=== PATIENT | female | born 1980 | race Caucasian/White ===

== ENCOUNTER 2016-12-31 01:07 | Emergency (ER) | payer MEDICAID, OTHER ==
[~2016-12-31] VITALS: Ht 152.4 cm; Wt 65.5 kg
[2016-12-31 01:17] VITALS: Ht 152.4 cm; Wt 65.5 kg
[2016-12-31] MEDS ORDERED: ONDANSETRON 4 MG INJ IV STA (01:59)
[2016-12-31] MEDS ORDERED: FAMOTIDINE 20 MG INJ IV STA (01:59)
[2016-12-31] MEDS ORDERED: SOD CHLORIDE 0.9% 1,000 ML IV STA (01:59)
[2016-12-31 02:21] LABS: ADD SCAN DIFF NO
[2016-12-31 02:23] LABS: BASOPHILS % 0.1 % (0.0-2.0); EOSINOPHILS # 0.1 10^3/ul (0.0-0.5); EOSINOPHILS % 0.6 % (0.0-7.0); HEMATOCRIT 43.1 % (37.0-47.0); HEMOGLOBIN 14.2 g/dl (12.0-16.0); LYMPHOCYTES # 1.9 10^3/ul (0.8-2.9); MEAN CORPUSCULAR HEMOGLOBIN 23.8 pg (29.0-33.0); MEAN CORPUSCULAR HGB CONC 32.9 g/dl (32.0-37.0); MEAN CORPUSCULAR VOLUME 72.2 fl (82.0-101.0); MEAN PLATELET VOLUME 10.1 fl (7.4-10.4); MONOCYTE # 0.5 10^3/ul (0.3-0.9); MONOCYTES % 4.3 % (0.0-11.0); NEUTROPHIL # 8.3 10^3/ul (1.6-7.5); NEUTROPHILS % 76.6 % (39.0-77.0); PLATELET COUNT 341 10^3/UL (140-415); RED BLOOD COUNT 5.97 10^6/ul (4.20-5.40); RED CELL DISTRIBUTION WIDTH 14.7 % (11.5-14.5); WHITE BLOOD COUNT 10.8 10^3/ul (4.8-10.8)
[2016-12-31 02:40] LABS: ALBUMIN 4.1 g/dl (3.3-4.9)
[2016-12-31 02:41] LABS: POTASSIUM 4.2 mmol/L (3.5-5.1)
[2016-12-31 02:43] LABS: ALBUMIN/GLOBULIN RATIO 1.2; CREATININE 0.61 mg/dl (0.44-1.00); TOTAL PROTEIN 7.5 g/dl (6.1-8.1)
[2016-12-31 02:44] LABS: CALCIUM 9.2 mg/dl (8.4-10.2)
[2016-12-31 02:49] LABS: BILIRUBIN,INDIRECT 0.4 mg/dl (0-1.1); BILIRUBIN,TOTAL 0.4 mg/dl (0.2-1.3)
[2016-12-31] MEDS ORDERED: morphine 4 MG/ML VIAL IV STA (02:54)
[2016-12-31 03:32] LABS: URINE BILIRUBIN (Dip) NEGATIVE (NEGATIVE); URINE BLOOD (Dip) NEGATIVE (NEGATIVE); URINE COLOR YELLOW (YELLOW); URINE GLUCOSE (Dip) NEGATIVE (NEGATIVE); URINE KETONES (Dip) NEGATIVE (NEGATIVE); URINE LEUKOCYTE ESTERASE (Dip) NEGATIVE (NEGATIVE); URINE NITRITE (Dip) NEGATIVE (NEGATIVE); URINE UROBILINOGEN (Dip) 0.2 E.U./dL (0.1-1.0)
[2016-12-31 03:37] LABS: ADD UMIC NO; URINE TOTAL PROTEIN (Dip) NEGATIVE (NEGATIVE)
--- NOTE | 2016-12-31 04:14 | RADRPT ---
PROCEDURE: CT ABDOMEN/PELVIS WITHOUT CONTRAST CLINICAL INDICATION: 36-year-old female with abdominal pain. TECHNIQUE: The study was performed utilizing a GE Skin Scanpeed VCT 64-slice CT scanner. Direct axia l sections were obtained through the abdomen and pelvis without the use of intravenous contrast mate rial. Sagittal and coronal reformations were obtained. One or more of the following dose reduction t echniques were utilized: automated exposure control, adjustment of the mA and/or kV according to pat ient's size or use of iterative reconstruction technique. The images [facility] CTD/vol = 8.4 mGy; Total Exam DLP = 489.4 mGy-cm. COMPARISON: None. FINDINGS: The lung bases are unremarkable. There is no evidence for significant pleural effusion. The liver has a normal size and contour without focal areas of abnormal density. No intrahepatic nor extrahepa tic biliary ductal dilatation is seen. The gallbladder demonstrates no wall thickening nor perichole cystic fluid. No biliary stones are evident. The pancreas is without areas of abnormal attenuation. The spleen is identified and has a normal size without abnormal density. The adrenal glands are unr emarkable. There is a rotational abnormality of the right kidney which appears to be duplicated. Th ere is a punctate nonobstructing left lower pole renal calculus. There is no evidence for obstructi ve uropathy. The urinary bladder is decompressed. There is diffuse thickening of the small bowel wit hout evidence for obstruction. The colon is decompressed. The appendix is visualized and is without abnormal thickening or surrounding inflammatory reaction. There is mild lower abdominal and pelvic free fluid. There is mild diffuse mesenteric infiltration. The aortoiliac vessels are without aneury smal dilatation. The osseous structures are intact. IMPRESSION: 1. Mild diffuse small bowel thickening without obstruction with mild diffuse mesenteric infiltratio n and free fluid within the lower abdomen and pelvis. This may represent an enteritis. Inflammatory bowel disease or ischemic bowel cannot be excluded. Clinical correlation is necessary. 2. No CT evidence for appendicitis. 3. Punctate nonobstructing left lower pole renal calculus. 4. 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 .Gil Mancia MD, MD Date Time Electronically viewed and signed by .Gil Mancia MD, on 12/31/2016 04:14 .M/
--- NOTE | 2016-12-31 05:03 | ERD ---
ER Documentation Chief Complaint Date/Time DATE: 12/31/16 TIME: 05:00 Chief Complaint AP Since 0900. hx of GERD. Not per verbatum HPI This is a 36-year-old female who presents to the emergency room for evaluation of abdominal pain. The patient does state she has a history of gastroesophageal reflux disease. Patient states that she has been feeling nauseous and has had abdominal pain which she localizes to the epigastric region. The patient denies any radiation the pain. She denies any shortness of breath, diaphoresis associated with this. The patient states any palpation aggravates her pain nothing has relieved her pain so far. ROS All systems reviewed and are negative except as per history of present illness. Allergies Allergies: Coded Allergies: No Known Allergy (Unverified , 12/31/16) PMhx/Soc History of Surgery: Yes (CS) Anesthesia Reaction: No Hx Neurological Disorder: No Hx Respiratory Disorders: No Hx Cardiac Disorders: No Hx Psychiatric Problems: No Hx Miscellaneous Medical Probl: Yes (Gastritis) Hx Alcohol Use: No Hx Substance Use: No Hx Tobacco Use: No Smoking Status: Never smoker Physical Exam Vitals Vital Signs Date Time Temp Pulse Resp B/P Pulse Ox O2 Delivery O2 Flow Rate FiO2 12/31/16 01:17 97.2 97 20 122/67 100 Physical Exam INITIAL VITAL SIGNS: Reviewed by me GENERAL: The patient is well developed and appropriate for usual state of health in no apparent distress HEENT: Pupils equal, round, and reactive to light. EOMI. There is no scleral icterus. NECK: C-spine is soft and supple, there is no meningismus. There is no cervical lymphadenopathy. LUNGS: Clear to auscultation bilaterally. There are no rales, wheezes or rhonchi. HEART: Regular rate and rhythm, no murmurs, clicks, rubs or gallops. ABDOMEN: Epigastric tenderness to palpation, negative Edward sign, otherwise soft, non-tender, non-distended. There are bowel sounds in all four quadrants. No rebound or guarding. EXTREMITIES: There is no peripheral cyanosis or edema. No focal swelling or erythema. NEUROLOGICAL: The patient moves all four extremities with 5/5 strength. Cranial nerves II - XII are intact. Normal gait. Alert and oriented SKIN: There is no apparent rash or petechiae. HEME/LYMPHATIC: There is no evidence of excessive bruising or lymphedema. PSYCHIATRIC: The patient does not appear anxious or depressed. Result Diagram: 12/31/16 0213 12/31/16 0213 Results 24 hrs Laboratory Tests Test 12/31/16 02:13 12/31/16 03:05 Alanine Aminotransferase (ALT/SGPT) 36IU/L Albumin 4.1g/dl Albumin/Globulin Ratio 1.20 Alkaline Phosphatase 85IU/L Anion Gap 19 Aspartate Amino Transf (AST/SGOT) 21IU/L Basophils # 0.010^3/ul Basophils % 0.1% Blood Urea Nitrogen 9mg/dl Calcium Level 9.2mg/dl Carbon Dioxide Level 25mmol/L Chloride Level 103mmol/L Creatinine 0.61mg/dl Direct Bilirubin 0.00mg/dl Eosinophils # 0.110^3/ul Eosinophils % 0.6% Globulin 3.40g/dl Glucose Level 123mg/dl Hematocrit 43.1% Hemoglobin 14.2g/dl Indirect Bilirubin 0.4mg/dl Lipase 58U/L Lymphocytes # 1.910^3/ul Lymphocytes % 18.0% Mean Corpuscular Hemoglobin 23.8pg Mean Corpuscular Hemoglobin Concent 32.9g/dl Mean Corpuscular Volume 72.2fl Mean Platelet Volume 10.1fl Monocytes # 0.510^3/ul Monocytes % 4.3% Neutrophils # 8.310^3/ul Neutrophils % 76.6% Nucleated Red Blood Cells # 0.010^3/ul Nucleated Red Blood Cells % 0.0/100WBC Platelet Count 87450^3/UL Potassium Level 4.2mmol/L Red Blood Count 5.9710^6/ul Red Cell Distribution Width 14.7% Sodium Level 143mmol/L Total Bilirubin 0.4mg/dl Total Protein 7.5g/dl White Blood Count 10.810^3/ul Urine Bilirubin NEGATIVE Urine Clarity CLEAR Urine Color YELLOW Urine Glucose NEGATIVE% Urine Hemoglobin NEGATIVE Urine Ketones NEGATIVE Urine Leukocyte Esterase NEGATIVE Urine Nitrite NEGATIVE Urine Specific Helton >=1.030 Urine Total Protein NEGATIVE Urine Urobilinogen 0.2 E.U./dL Urine pH 5.5 Current Medications Medications (Trade) Dose Ordered Sig/Richard Route PRN Reason Start Time Stop Time Status Last Admin Dose Admin Sodium Chloride (NS) 1,000 ml @ 1,000 mls/hr Q1H STAT IV 12/31/16 01:59 3/18/17 02:58 DC 12/31/16 02:09 Ondansetron HCl (Zofran Inj) 4 mg ONCE STAT IV 12/31/16 01:59 12/31/16 02:00 DC 12/31/16 02:09 Famotidine (Pepcid Iv) 20 mg ONCE STAT IV 12/31/16 01:59 12/31/16 02:00 DC 12/31/16 02:09 Morphine Sulfate (morphine) 4 mg ONCE STAT IV 12/31/16 02:54 12/31/16 02:55 DC 12/31/16 03:09 Procedures/MDM CT abdomen pelvis without: 1. Mild diffuse small bowel thickening without obstruction with mild diffuse mesenteric infiltration and free fluid within the lower abdomen and pelvis. This may represent an enteritis. Inflammatory bowel disease or ischemic bowel cannot be excluded. Clinical correlation is necessary. 2. No CT evidence for appendicitis. 3. Punctate nonobstructing left lower pole renal calculus. 4. 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 This 36-year-old female presents to the emergency room for evaluation of abdominal pain. This patient does have a history of gastroesophageal reflux disease. The patient did have epigastric pain on my examination. She was given Zofran and Pepcid with mild relief of her pain. The patient was then given morphine. The patient had a CAT scan which does show small bowel thickening with no obvious obstruction. My suspicion for ischemic bowel is low at this time as this patient's pain is completely controlled with morphine. She is not tachycardic, lactic acid is only 1.5. She is in no acute distress. The patient does have a history of GERD and given her symptoms I do feel that she has a flareup of her gastritis. The patient will be discharged home with a prescription for Zantac at this time. I have discussed her plan of care with the patient and advised to return immediately to the ER if she develops any worsening pain and she verbalized understanding. Departure Diagnosis: Primary Impression: Acute gastritis Additional Impressions: Abdominal pain Nausea Condition: Stable JOE SOOD DO Dec 31, 2016 05:03
[2016-12-31] MEDS ORDERED: RANI150T9 PO (05:04)
[2016-12-31 05:14] VITALS: BP 102/66; PULSE 68; RESP 13; TEMP 98.6
== END 2016-12-31 05:14 | disposition home or self-care (01) ==
LOC: E/R 01:07
DX: K29.00 Acute gastritis without bleeding (principal); R11.0 Nausea
CPT/HCPCS: 36415; 74176; 80053; 81003; 83605; 83690; 85025; 96374; 96375; J2270; J2405; J7030; Z7502; Z7610

== ENCOUNTER 2017-02-12 04:51 | Emergency (ER) | payer MEDICAID ==
[~2017-02-12] VITALS: Ht 160 cm; Wt 67.0 kg
[~2017-02-12 04:51] MED LIST: RANI150T9 PO
[2017-02-12 04:56] VITALS: Ht 160 cm; Wt 67.0 kg
[2017-02-12] MEDS ORDERED: BELLADONNA/PHENOBARBITAL TAB PO STA (05:10)
[2017-02-12] MEDS ORDERED: ONDANSETRON 4 MG INJ IV STA (05:10)
[2017-02-12] MEDS ORDERED: FAMOTIDINE 20 MG INJ IV STA (05:10)
[2017-02-12] MEDS ORDERED: LIDOCAINE/MYLANTA 40 ML BTL PO STA (05:10)
[2017-02-12 05:22] LABS: URINE BLOOD (Dip) POC 2+ (NEGATIVE)
[2017-02-12] MEDS ORDERED: FAMO-18 PO (05:29)
[2017-02-12] MEDS ORDERED: ONDA4TAB8 PO (05:29)
--- NOTE | 2017-02-12 05:33 | ERD ---
ER Documentation Chief Complaint Date/Time DATE: 02/12/17 TIME: 05:31 Chief Complaint epigastric pain since 1 hour ago HPI This is a 36-year-old female presents to the ER with epigastric pain for the last hour. Patient has a known history of GERD. Patient is taking omeprazole and ranitidine at home however this has not helped her. She does have vomiting. Vomiting is nonbilious nonbloody. Epigastric pain is described as burning in quality. Pain is nonradiating. She denies any fevers or chills. She does not have any diarrhea. She denies any constipation. She denies any urinary frequency or dysuria. Patient denies any chest pain or shortness of breath. ROS 12 point review of systems was done, all negative except per HPI. Medications Home Meds Active Scripts Famotidine* (Pepcid*) 20 Mg Tablet, 20 MG PO BID for 7 Days, TAB Prov:MAREK LUCAS C 02/12/17 Ondansetron Hcl* (Zofran*) 4 Mg Tablet, 4 MG PO Q6H for NAUSEA AND/OR VOMITING, #30 TAB Prov:SHAYYMENDOZAMAREK C 02/12/17 Ranitidine Hcl* (Zantac*) 150 Mg Tablet, 150 MG PO BID, #60 TAB Prov:JOE SOOD DO 12/31/16 Allergies Allergies: Coded Allergies: No Known Allergy (Unverified , 12/31/16) PMhx/Soc History of Surgery: Yes (CS) Anesthesia Reaction: No Hx Neurological Disorder: No Hx Respiratory Disorders: No Hx Cardiac Disorders: No Hx Psychiatric Problems: No Hx Miscellaneous Medical Probl: Yes (Gastritis) Hx Alcohol Use: No Hx Substance Use: No Hx Tobacco Use: No Smoking Status: Never smoker Physical Exam Vitals Vital Signs Date Time Temp Pulse Resp B/P Pulse Ox O2 Delivery O2 Flow Rate FiO2 02/12/17 04:56 97.8 78 20 134/78 98 Physical Exam GENERAL: The patient is well developed and appropriate for usual state of health , in no apparent distress. HEENT: Atraumatic. CHEST: Clear to auscultation bilaterally. There are no rales, wheezes or rhonchi. HEART: Regular rate and rhythm. No murmurs, clicks, rubs or gallops. ABDOMEN: Soft, nontender and nondistended. Good bowel sounds. No rebound or guarding. No gross peritonitis. No gross organomegaly or masses. No Edward sign or McBurney point tenderness. BACK: No midline or flank tenderness. NEURO: Alert and oriented. SKIN:The skin is warm and dry. Results 24 hrs Laboratory Tests Test 02/12/17 05:23 Bedside Urine pH (LAB) 6.0 Bedside Urine Protein (LAB) Negative Bedside Urine Glucose (UA) Negative Bedside Urine Ketones (LAB) Negative Bedside Urine Blood 2+ Bedside Urine Nitrite (LAB) Negative Bedside Urine Leukocyte Esterase (L Negative Current Medications Medications (Trade) Dose Ordered Sig/Richard Route PRN Reason Start Time Stop Time Status Last Admin Dose Admin Ondansetron HCl (Zofran Inj) 4 mg ONCE STAT IV 02/12/17 05:10 02/12/17 05:12 DC Famotidine (Pepcid Iv) 20 mg ONCE STAT IV 02/12/17 05:10 02/12/17 05:12 DC Miscellaneous Medication (Gi Cocktail (2)) 40 ml ONCE STAT PO 02/12/17 05:10 02/12/17 05:12 DC Belladonna/ Phenobarbital () 2 tab ONCE STAT PO 02/12/17 05:10 02/12/17 05:12 DC Procedures/MDM Differential Diagnosis: GERD, gastritis, peptic ulcer disease, pancreatitis, cholecystitis, choledocholithiasis, biliary colic, cholangitis, Qaei-Aeyq-Tosabo , ACS/AR, Pnuemonia . This is likely GERD. Patient appears to have severe and constant symptoms. I advised patient to urgently follow up with a product development chemist for endoscopy and H. pylori testing. I did get an ultrasound to rule out gallbladder disease. I am still awaiting these results. If results are normal patient will be sent home with Zofran with famotidine. I shared my medical decision making with the patient she understands and agrees with plan. Departure Diagnosis: Primary Impression: Epigastric pain Condition: Stable Patient Instructions: Epigastric Pain (Uncertain Cause) Additional Instructions: Specialist:Usted tiene suzie condicin mdica que requiere que vicki a un especialista dentro de los prximos 1-2 guadalupe.POR FAVOR,CON [place]AMP[place]LL SEGUIMIENTO DE PRIMARIA PHSICIAN refferal. SI USTED NO TIENE UN MDICO GENERAL Y / O USTED NO PUEDE PAGAR dez a un mdico,los siguientes barry RECURSOS sido suministrado a usted. ES CAMP[place]LL RESPONSABILIDAD PARA SER VISTOS POR EL ESPECIALISTA: NECESITA DEZ UN GASTROENTEROLOGO PARA SUZIE ENDOSCOPIA PIDA EXAMEN DE H.PYLORI MAREK LUCAS Feb 12, 2017 05:33
[2017-02-12 05:53] LABS: ADD SCAN DIFF NO
[2017-02-12 05:59] LABS: BASOPHILS % 0.1 % (0.0-2.0); EOSINOPHILS # 0.1 10^3/ul (0.0-0.5); EOSINOPHILS % 1.5 % (0.0-7.0); HEMATOCRIT 40.6 % (37.0-47.0); HEMOGLOBIN 12.9 g/dl (12.0-16.0); LYMPHOCYTES # 1.7 10^3/ul (0.8-2.9); LYMPHOCYTES % 21.7 % (15.0-51.0); MEAN CORPUSCULAR HGB CONC 31.8 g/dl (32.0-37.0); MEAN CORPUSCULAR VOLUME 72.2 fl (82.0-101.0); MEAN PLATELET VOLUME 10.2 fl (7.4-10.4); MONOCYTE # 0.3 10^3/ul (0.3-0.9); MONOCYTES % 4.2 % (0.0-11.0); NEUTROPHIL # 5.7 10^3/ul (1.6-7.5); NEUTROPHILS % 72.1 % (39.0-77.0); PLATELET COUNT 366 10^3/UL (140-415); RED BLOOD COUNT 5.62 10^6/ul (4.20-5.40); RED CELL DISTRIBUTION WIDTH 15.4 % (11.5-14.5); WHITE BLOOD COUNT 7.8 10^3/ul (4.8-10.8)
[2017-02-12 06:12] LABS: ADD UMIC YES; ALBUMIN 4.4 g/dl (3.3-4.9); URINE BILIRUBIN (Dip) NEGATIVE (NEGATIVE); URINE BLOOD (Dip) 3+ (NEGATIVE); URINE COLOR LT. YELLOW (YELLOW); URINE GLUCOSE (Dip) NEGATIVE (NEGATIVE); URINE KETONES (Dip) NEGATIVE (NEGATIVE); URINE LEUKOCYTE ESTERASE (Dip) NEGATIVE (NEGATIVE); URINE NITRITE (Dip) NEGATIVE (NEGATIVE); URINE TOTAL PROTEIN (Dip) NEGATIVE (NEGATIVE); URINE UROBILINOGEN (Dip) 0.2 E.U./dL (0.1-1.0)
[2017-02-12 06:13] LABS: POTASSIUM 4.1 mmol/L (3.5-5.1)
[2017-02-12 06:15] LABS: ALBUMIN/GLOBULIN RATIO 1.41; BILIRUBIN,INDIRECT 0.5 mg/dl (0-1.1); BILIRUBIN,TOTAL 0.5 mg/dl (0.2-1.3); CREATININE 0.58 mg/dl (0.44-1.00); TOTAL PROTEIN 7.5 g/dl (6.1-8.1)
[2017-02-12 06:16] LABS: CALCIUM 9.2 mg/dl (8.4-10.2)
--- NOTE | 2017-02-12 06:16 | RADRPT ---
PROCEDURE: Abdominal ultrasound, limited. CLINICAL INDICATION: Abdominal pain. TECHNIQUE: Multiple real-time images were acquired of the patient's right upper abdomen utilizing a high resolution transducer. COMPARISON: None FINDINGS: The liver demonstrates increased echogenicity and normal size measuring 15.1 cm. There is no focal mass or intrahepatic biliary ductal dilatation. The portal vein is patent. The gallbladder is not distended. No gallstones are identified. There is no pericholecystic fluid or gallbladder wall thi ckening. The common bile duct measures 4.0 mm in maximal dimension. The pancreas is obscured by ov erlying bowel gas. No free fluid is identified. The right kidney is normal size and echogenicity measuring 8.9 cm. There is no focal renal mass or echogenic calculus identified. There is no obstructive uropathy. IMPRESSION: Fatty infiltration of the liver. Pancreas obscured by overlying bowel gas. .Fredrick Gabriel MD, Date Time Electronically viewed and signed by .Fredrick Gabriel MD, MD on 02/12/2017 06:16 .T/
[2017-02-12 06:33] LABS: BACTERIA,URINE RARE; SQUAMOUS EPITHELIAL CELL,UR FEW
[2017-02-12 07:17] VITALS: RESP 18
== END 2017-02-12 07:18 | disposition home or self-care (01) ==
LOC: FTE 04:51
DX: R10.13 Epigastric pain (principal); R11.10 Vomiting, unspecified
CPT/HCPCS: 36415; 76705; 80053; 81001; 83690; 85025; 96374; 96375; J2405; Z7502; Z7610; 81003

== ENCOUNTER 2017-04-03 08:20 | Emergency (ER) | payer MEDICAID, OTHER ==
[~2017-04-03] VITALS: Ht 162.6 cm; Wt 68.5 kg
[~2017-04-03 08:20] MED LIST changes: +FAMO-18 PO; +ONDA4TAB8 PO
[2017-04-03 08:32] VITALS: Ht 162.6 cm; Wt 68.5 kg
[2017-04-03] MEDS ORDERED: ONDANSETRON (ODT) 4 MG TAB ODT STA (09:48)
[2017-04-03] MEDS ORDERED: PANTOPRAZOLE (EC) 40 MG TAB PO ONE (10:00)
[2017-04-03] MEDS ORDERED: LIDOCAINE/MYLANTA 40 ML BTL PO ONE (10:00)
[2017-04-03] MEDS ORDERED: morphine 4 MG/ML VIAL IV STA (10:55)
[2017-04-03] MEDS ORDERED: FAMOTIDINE 20 MG INJ IV STA (10:55)
[2017-04-03] MEDS ORDERED: SOD CHLORIDE 0.9% 1,000 ML IV STA (10:55)
[2017-04-03 11:11] LABS: ADD SCAN DIFF NO
[2017-04-03 11:18] LABS: BASOPHILS % 0.2 % (0.0-2.0); EOSINOPHILS # 0.1 10^3/ul (0.0-0.5); EOSINOPHILS % 0.6 % (0.0-7.0); HEMATOCRIT 43.1 % (37.0-47.0); HEMOGLOBIN 13.7 g/dl (12.0-16.0); LYMPHOCYTES # 2.2 10^3/ul (0.8-2.9); LYMPHOCYTES % 19.9 % (15.0-51.0); MEAN CORPUSCULAR HEMOGLOBIN 23.1 pg (29.0-33.0); MEAN CORPUSCULAR HGB CONC 31.8 g/dl (32.0-37.0); MEAN CORPUSCULAR VOLUME 72.7 fl (82.0-101.0); MEAN PLATELET VOLUME 9.4 fl (7.4-10.4); MONOCYTE # 0.5 10^3/ul (0.3-0.9); MONOCYTES % 4.4 % (0.0-11.0); NEUTROPHIL # 8.2 10^3/ul (1.6-7.5); NEUTROPHILS % 74.6 % (39.0-77.0); PLATELET COUNT 313 10^3/UL (140-415); RED BLOOD COUNT 5.93 10^6/ul (4.20-5.40); RED CELL DISTRIBUTION WIDTH 15.5 % (11.5-14.5); WHITE BLOOD COUNT 10.9 10^3/ul (4.8-10.8)
[2017-04-03 11:45] LABS: ALBUMIN 4.9 g/dl (3.3-4.9); ALBUMIN/GLOBULIN RATIO 1.53; BILIRUBIN,INDIRECT 0.4 mg/dl (0-1.1); BILIRUBIN,TOTAL 0.4 mg/dl (0.2-1.3); CALCIUM 9.5 mg/dl (8.4-10.2); CREATININE 0.58 mg/dl (0.44-1.00); POTASSIUM 4.3 mmol/L (3.5-5.1); TOTAL PROTEIN 8.1 g/dl (6.1-8.1)
[2017-04-03] MEDS ORDERED: FAMO-18 PO (12:02)
[2017-04-03] MEDS ORDERED: ACET500C5 PO (12:02)
[2017-04-03 12:25] VITALS: BP 118/70; PULSE 68; RESP 20; TEMP 98.2
--- NOTE | 2017-04-03 16:04 | ERD ---
ER Documentation Chief Complaint Date/Time DATE: 04/03/17 TIME: 15:57 Chief Complaint MIDDLE ABD PAIN X2 DAYS WITH N/V HPI 36-year-old female patient with no significant past medical history presents to the ED complaining of epigastric pain that started last night. Reports that this is the same epigastric pain and has followed up with the [facility] and tested a stool culture which was positive for H. Pylori. States that she is taking amoxicillin, metronidazole and omeprazole. Reports that her last menses was sometime 10 days ago. Reports that she has not followed up with a specialist to see a central office repairer. Denies any chest pain, shortness of breath, fever, chills, cough, dyspnea on exertion, orthopnea , vomiting, diarrhea. ROS All systems reviewed and are negative except as per history of present illness. Medications Home Meds Active Scripts Famotidine* (Pepcid*) 20 Mg Tablet, 20 MG PO BID for 4 Days, TAB Prov:KATHRYN PARRISH PA-C 04/03/17 Acetaminophen* (Tylophen*) 500 Mg Capsule, 1 CAP PO Q6H Y for PAIN AND OR ELEVATED TEMP, #20 CAP Prov:KATHRYN PARRISH PA-C 04/03/17 Famotidine* (Pepcid*) 20 Mg Tablet, 20 MG PO BID for 7 Days, TAB Prov:MAREK LUCAS 02/12/17 Ondansetron Hcl* (Zofran*) 4 Mg Tablet, 4 MG PO Q6H for NAUSEA AND/OR VOMITING, #30 TAB Prov:MAREK LUCAS 02/12/17 Ranitidine Hcl* (Zantac*) 150 Mg Tablet, 150 MG PO BID, #60 TAB Prov:JOE SOOD DO 12/31/16 Allergies Allergies: Coded Allergies: No Known Allergy (Unverified , 12/31/16) PMhx/Soc Medical and Surgical Hx: pt denies Medical Hx, pt denies Surgical Hx History of Surgery: Yes (CS) Anesthesia Reaction: No Hx Neurological Disorder: No Hx Respiratory Disorders: No Hx Cardiac Disorders: No Hx Psychiatric Problems: No Hx Miscellaneous Medical Probl: Yes (Gastritis) Hx Alcohol Use: No Hx Substance Use: No Hx Tobacco Use: No Smoking Status: Never smoker Physical Exam Vitals Vital Signs Date Time Temp Pulse Resp B/P Pulse Ox O2 Delivery O2 Flow Rate FiO2 04/03/17 12:25 98.2 68 20 118/70 98 Room Air 04/03/17 08:32 98.2 82 16 113/73 98 Physical Exam Const: [id number], well-nourished. In no acute distress. Head: Atraumatic, normocephalic Eyes: Normal Conjunctiva without injection. No purulent discharge. ENT: Normal external ear, nose. Moist oropharynx without tonsillar exudates. Non -erythematous pharynx. Uvula midline. No drooling. No trismus. Neck: No cervical midline tenderness. Full range of motion. No meningismus. No cervical lymphadenopathy. No JVD. Resp: Clear to auscultation bilaterally. No wheezing, rhonchi, rales, or crackles. No accessory muscle use. No retractions. Cardio: Regular rate and rhythm. No murmurs, rubs or gallops. Abd: Soft, epigastric tenderness, non distended. Normal bowel sounds. No palpable masses. No rebound tenderness. No guarding. Negative McBurney's point. Negative psoas sign. Negative obturator sign. Skin: No petechiae or rashes Back: No midline tenderness. No CVA tenderness. Ext: No cyanosis, or edema. Neur: Awake and alert. Normal gait. Normal coordination. Psych: Normal Mood and Affect Results 24 hrs Laboratory Tests Test 04/03/17 11:00 White Blood Count 10.910^3/ul Red Blood Count 5.9310^6/ul Hemoglobin 13.7g/dl Hematocrit 43.1% Mean Corpuscular Volume 72.7fl Mean Corpuscular Hemoglobin 23.1pg Mean Corpuscular Hemoglobin Concent 31.8g/dl Red Cell Distribution Width 15.5% Platelet Count 54175^3/UL Mean Platelet Volume 9.4fl Neutrophils % 74.6% Lymphocytes % 19.9% Monocytes % 4.4% Eosinophils % 0.6% Basophils % 0.2% Nucleated Red Blood Cells % 0.0/100WBC Neutrophils # 8.210^3/ul Lymphocytes # 2.210^3/ul Monocytes # 0.510^3/ul Eosinophils # 0.110^3/ul Basophils # 0.010^3/ul Nucleated Red Blood Cells # 0.010^3/ul Sodium Level 142mmol/L Potassium Level 4.3mmol/L Chloride Level 103mmol/L Carbon Dioxide Level 25mmol/L Anion Gap 18 Blood Urea Nitrogen 9mg/dl Creatinine 0.58mg/dl Glucose Level 104mg/dl Calcium Level 9.5mg/dl Total Bilirubin 0.4mg/dl Direct Bilirubin 0.00mg/dl Indirect Bilirubin 0.4mg/dl Aspartate Amino Transf (AST/SGOT) 27IU/L Alanine Aminotransferase (ALT/SGPT) 54IU/L Alkaline Phosphatase 66IU/L Total Protein 8.1g/dl Albumin 4.9g/dl Globulin 3.20g/dl Albumin/Globulin Ratio 1.53 Lipase 64U/L Current Medications Medications (Trade) Dose Ordered Sig/Richard Route PRN Reason Start Time Stop Time Status Last Admin Dose Admin Miscellaneous Medication (Gi Cocktail (2)) 40 ml ONCE ONCE PO 04/03/17 10:00 04/03/17 10:01 DC 04/03/17 10:08 Pantoprazole (Protonix Tab) 40 mg ONCE ONCE PO 04/03/17 10:00 04/03/17 10:01 DC 04/03/17 10:08 Ondansetron HCl 4 mg 4 mg ONCE STAT ODT 04/03/17 09:48 04/03/17 09:49 DC 04/03/17 10:08 Sodium Chloride (NS) 1,000 ml @ 1,000 mls/hr Q1H STAT IV 04/03/17 10:55 04/03/17 11:54 DC 04/03/17 11:09 Morphine Sulfate (morphine) 4 mg ONCE STAT IV 04/03/17 10:55 04/03/17 10:57 DC 04/03/17 11:08 Famotidine (Pepcid Iv) 20 mg ONCE STAT IV 04/03/17 10:55 04/03/17 10:57 DC 04/03/17 11:08 Procedures/MDM 36 year female with no significant past medical history presents to the ED complaining of epigastric pain that started 2 days ago. Reports that she has some slight nausea and vomiting. Patient is afebrile and nontoxic-appearing. Patient has normal vital signs. Patient was given Zofran, GI cocktail, Tylenol with no improvement of her symptoms. Patient states that she still is in pain. Therefore blood work was obtained. Patient was further worked up with CBC, CMP, lipase, UA, urine . CBC: Leukocytosis 10.8. No e/o of systemic infection. No e/o anemia. CMP: No e/o severe acidosis, alkalosis, renal failure, diabetic ketoacidosis, liver disease Lipase within normal limits. Urine: No leukocyte esterase, no nitrites, no hematuria. Urine : Negative Patient likely has GERD vs. gastritis vs. PUD. A differential diagnosis considered includes but is not limited to cholecystitis, choledocholithiasis, cholangitis, pancreatitis, appendicitis, bowel obstruction, ileus, volvulus, nephrolithiasis, pyelonephritis, hepatitis, perforated viscus, diverticulitis, abdominal hernia, acute abdomen, mesenteric ischemia or other emergent conditions. Discharge medications: Tylenol Follow up with primary care physician in 1-2 days for referral to central office repairer for an endoscopy. Instructed patient to return to the ED sooner for any worsening symptoms. Patient's questions were answered. Patient understood and agreed with discharge plan. Patient discharged stable. Departure Diagnosis: Primary Impression: Epigastric pain Condition: Stable Patient Instructions: Gerd (Adult), Gastritis Vs. Ulcer Referrals: [facility] YOU HAVE RECEIVED A MEDICAL SCREENING EXAM AND THE RESULTS INDICATE THAT YOU DO NOT HAVE A CONDITION THAT REQUIRES URGENT TREATMENT IN THE EMERGENCY DEPARTMENT. FURTHER EVALUATION AND TREATMENT OF YOUR CONDITION CAN WAIT UNTIL YOU ARE SEEN IN YOUR DOCTORS OFFICE WITHIN THE NEXT 1-2 DAYS. IT IS YOUR RESPONSIBILITY TO MAKE AN APPOINTMENT FOR FOLOW-UP CARE. IF YOU HAVE A PRIMARY DOCTOR --you should call your primary doctor and schedule an appointment IF YOU DO NOT HAVE A PRIMARY DOCTOR YOU CAN CALL OUR PHYSICIAN REFERRAL HOTLINE AT IF YOU CAN NOT AFFORD TO SEE A PHYSICIAN YOU CAN CHOSE FROM THE FOLLOWING [facility] [address] [facility] [address] [facility] [address] [facility] [facility] [address] [facility]. [facility] [address] [facility]. [facility]. [address] [facility]. [facility] YOU HAVE RECEIVED A MEDICAL SCREENING EXAM AND THE RESULTS INDICATE THAT YOU DO NOT HAVE A CONDITION THAT REQUIRES URGENT TREATMENT IN THE EMERGENCY DEPARTMENT. FURTHER EVALUATION AND TREATMENT OF YOUR CONDITION CAN WAIT UNTIL YOU ARE SEEN IN YOUR DOCTORS OFFICE WITHIN THE NEXT 1-2 DAYS. IT IS YOUR RESPONSIBILITY TO MAKE AN APPOINTMENT FOR FOLOW-UP CARE. IF YOU HAVE A PRIMARY DOCTOR --you should call your primary doctor and schedule and appointment IF YOU DO NOT HAVE A PRIMARY DOCTOR YOU CAN CALL OUR PHYSICIAN REFERRAL HOTLINE AT . IF YOU CAN NOT AFFORD TO SEE A PHYSICIAN YOU CAN CHOSE FROM THE FOLLOWING [facility] INSTITUTIONS: [facility] [address] [place] [address] [facility] [address] [place] [place] [id number] [place] [address] [address] [place] [address] [facility] URGENT CARE/SPECIALTIES Additional Instructions: Visite a zurita kenny lawson para un EXAMEN para un referido a un gastroenterlogo para suzie endoscopia. Regrese a estas instalaciones si no se mejora nyasia esper bamos o nyasia le dijimos. KATHRYN PARRISH PA-C Apr 03, 2017 16:04 bamos o nyasia le dijimos. KATHRYN PARRISH PA-C Apr 03, 2017 16:04
== END 2017-04-03 12:25 | disposition home or self-care (01) ==
LOC: FTE 08:20
DX: R10.13 Epigastric pain (principal); R11.2 Nausea with vomiting, unspecified
CPT/HCPCS: 80053; 83690; 85025; J2270; J7030; Z7610; 36415; 96374; 96375

== ENCOUNTER 2017-07-05 11:29 | Day surgery (SDC) | payer OTHER ==
[~2017-07-05] VITALS: Ht 160 cm; Wt 67.4 kg
[~2017-07-05 11:29] MED LIST changes: +ACET500C5 PO; -FAMO-18 PO; +FAMO-96 PO
[2017-07-05 12:10] VITALS: Ht 160 cm; Wt 67.4 kg
[2017-07-05] MEDS ORDERED: ALLERGY MEDICATION (12:15)
[2017-07-05 13:27] VITALS: BP 122/60; PULSE 83; RESP 18
[2017-07-05] MEDS ORDERED: FENTAnyl 50 MCG/ML VIAL ONE (14:13)
[2017-07-05] MEDS ORDERED: PROPOFOL 20 ML ONE (14:13)
--- NOTE | 2017-07-05 14:38 | OPPN ---
Date/Time of Note Date/Time of Note DATE: 07/05/17 TIME: 14:34 Proc Note GI Procedure Date 07/05/17 Pre-procedure Diagnosis * Occult blood positive stool Post-procedure Diagnosis Assessment: * Normal colonic mucosa to cecum * Small internal hemorrhoids Plan: * Advance diet as tolerated * Colonoscopy at age 48 Procedure Performed: Colonoscopy Surgeon FLORESITA BOOTH MD Autocad none Anesthesia Type: MAC Anesthesiologist: DELMI JONES MD Tourniquet Time none EBL none Transfusion required none Grafts/Implants none Tubes/Drains none Complication(s) none Pt Condition post procedure: stable Disposition: home Indications: other (OB positive stool) Procedure Description After informed consent, with the patient/relatives understanding the procedure, its indications and potential risks and complications, including but not limited to: Allergic reaction, bleeding, perforation, infection, and after all pertinent questions were answered to the patient's satisfaction, the patient/ relatives signed the witnessed informed consent. Following this, premedication was administered slowly IV push under careful cardiovascular and respiratory monitoring with pulse OXIMETRY, automatic blood pressure, and scouring train operator. Once the sedative effect was achieved, the patient was placed in the left lateral decubitus position, digital rectal examination was performed. The colonoscope was then introduced and advanced under visual control throughout all segments of the colon including: the rectum, sigmoid, descending colon, splenic flexure, transverse colon, hepatic flexure, ascending colon and finally reaching the cecum which was clearly identified by transillumination, finger indentation and the ileocecal valve. Careful examination of the mucosa of the lower gastrointestinal tract both on insertion as well as withdrawal of the instrument disclosed the following findings: PREPARATION QUALITY: [Adequate], RECTAL EXAM: The anorectal area was visualized examined and digital rectal examination performed with the following findings: No evidence of perirectal disease, no masses. COLONIC MUCOSA: The mucosa of all segments of the colon was carefully examined and showed the following findings: There are small internal hemorrhoids. Otherwise the examined mucosa appears within normal limits. There is no evidence of inflammatory changes, diverticular formation, polyps or other neoplasms, vascular malformation, or any other abnormality. The instrument was then withdrawn, the patient tolerated the procedure well and was transferred out of the Endoscopy Suite awake and in good condition to continue recovery under observation. Copies To: CC: FLORESITA BOOTH MD, MORDO MD Jul 05, 2017 14:38
--- NOTE | 2017-07-05 14:42 | OPPN ---
Date/Time of Note Date/Time of Note DATE: 07/05/17 TIME: 14:38 Proc Note GI Procedure Date 07/05/17 Pre-procedure Diagnosis * Dyspepsia/reflux symptoms Post-procedure Diagnosis Assessment: * Rule out eosinophilic esophagitis. Biopsies obtained * Moderate gastritis. Rule out H. pylori infection. Biopsies obtained * Otherwise normal EGD Plan: * PPI therapy * Review pathology * Follow-up as necessary Procedure Performed: Endoscopy Surgeon see signature line Deicer Repairer Pneumatic none Anesthesia Type: MAC Anesthesiologist: EDLMI JONES MD Tourniquet Time none EBL none Transfusion required none Grafts/Implants none Tubes/Drains none Complication(s) none Pt Condition post procedure: stable Disposition: home Procedure Description After informed consent, with the patient/relatives understanding the procedure, its indications, potential risks and complications, including but not limited to : allergic reaction, bleeding, perforation or infection, and after all pertinent questions were answered to the patients satisfaction, the patient/ relatives signed witnessed informed consent. Following this, premedication was administered slowly IV push under careful cardiovascular and respiratory monitoring with pulse oximetry, automatic blood pressure, and media monitor. Once the sedative effect was achieved the patient was place in the left lateral decubitus, the panendoscope was introduced and advanced under visual control. Careful examination of the upper gastrointestinal tract, both on insertion as well as withdrawal of the instrument disclosing the following findings: ESOPHAGUS: the mucosa of the entire esophagus was carefully examined and showed the following findings: There is multi-ring appearance of the body of the esophagus. Biopsies were obtained to rule out eosinophilic esophagitis. Otherwise the mucosa appears within normal limits. There is no evidence of esophagitis, varices, neoplasm, or stricture. No Hiatal Hernia identified. STOMACH: Upon entrance to the stomach air was insufflated, the gastric boyle distended normally. The mucosa of the fundus, body and antrum of the stomach was carefully examined both head-on and on retroflexion, and showed the following findings: There is moderate erythema and edema of the mucosa of the body and antrum. Biopsies were obtained to rule out H. pylori infection. Otherwise the mucosa appears within normal limits with no abnormalities. There is no evidence of ulcers or neoplasm. PYLORUS: The pylorus was carefully examined and showed the following findings: the pylorus appears patent and within normal limits, with no evidence of gastric outlet obstruction. DUODENUM: The duodenal mucosa was carefully examined in the duodenal bulb as well as the second portion of the duodenum and showed the following findings: the mucosa appears unremarkable with no evidence of duodenitis, ulcer or neoplasm. Copies To: CC: FLORESITA BOOTH MD, MORDO MD Jul 05, 2017 14:42
[2017-07-05 15:05] VITALS: BP 110/65; PULSE 74; RESP 14
== END 2017-07-05 16:13 | disposition home or self-care (01) ==
LOC: GIL 11:29
PROVIDERS: ATTEND Internal Medicine Gastroenterology
DX: K92.1 Melena (principal); K64.8 Other hemorrhoids; K29.70 Gastritis, unspecified, without bleeding
CPT/HCPCS: 43239; 45378; 84703; 88305; 88312; J3010; Z7610; 88313